=== PATIENT | male | born 1985 | race Caucasian/White ===

== ENCOUNTER 2021-06-17 17:31 | Emergency (ER) | payer BC ==
[~2021-06-17] VITALS: Ht 165.1 cm; Wt 81.6 kg
[~2021-06-17 17:31] MED LIST: ASACOL; MESA800T PO
--- NOTE | 2021-06-17 17:35 | NUR ---
Placed in room 1 . Placed on food concession manager, blood pressure machine and pulse oximeter. To gown for exam. Side rails up. Report given to LILLIANA Barba.
--- NOTE | 2021-06-17 17:40 | NUR ---
Pt brought by self, A&Ox4, pt presents to ER with L testicular pain, pt taking cipro byut symptoms not resolving , afebrile, will cont to monitor.
[2021-06-17 17:53] VITALS: BP_SYST 158
--- NOTE | 2021-06-17 18:05 | NUR ---
Dr Solomon evaluating patient at bedside
--- NOTE | 2021-06-17 18:10 | NUR ---
CALM, ALERT, RESP UNLABORED, SKIN WARM AND DRY, COMMUNICATES CLEARLY, NAD
--- NOTE | 2021-06-17 18:15 | NUR ---
Pt off the unit for US
[2021-06-17 19:04] LABS: BASOPHILS # (AUTO) 0.1 K/uL (0.0-0.2); BASOPHILS % (AUTO) 0.9 % (0.0-2.0); EOSINOPHILS # (AUTO) 0.2 K/uL (0.0-0.4); HEMATOCRIT 44.2 % (36-54); HEMOGLOBIN 14.4 g/dL (14.0-18.0); LYMPHOCYTES # (AUTO) 1.6 K/uL (1.0-5.5); LYMPHOCYTES % (AUTO) 20.6 % (20.5-51.5); MEAN CORPUSCULAR HEMOGLOBIN 24 pg (27-31); MEAN CORPUSCULAR HGB CONC 33 % (32-36); MEAN CORPUSCULAR VOLUME 75 fL (79.0-98.0); MONOCYTES # (AUTO) 0.7 K/uL (0.0-1.0); MONOCYTES % (AUTO) 9.2 % (1.7-9.3); NEUTROPHILS # (AUTO) 5.2 K/uL (1.8-7.7); NEUTROPHILS % (AUTO) 67.3 % (40.0-70.0); PLATELET COUNT (AUTO) 323 K/uL (130-430); RED BLOOD CELL COUNT(AUTO) 5.93 MIL/uL (4.2-6.2); RED CELL DISTRIBUTION WIDTH 15.7 % (9.0-15.0); WHITE BLOOD COUNT (AUTO) 7.7 K/uL (4.8-10.8)
[2021-06-17 19:20] LABS: C-REACTIVE PROTEIN QUANT < 0.2 mg/dL (0-0.5)
--- NOTE | 2021-06-17 19:20 | NUR ---
REPORT RECEIVED FROM LILLIANA FLORIAN. PT RESTING CALMLY. AWAITING FOR DISPOSITION.
[2021-06-17 19:25] LABS: ALANINE AMINOTRANSFERASE 25 U/L (12-78); ALBUMIN 3.8 g/dL (3.4-4.8); ASPARTATE AMINOTRANSFERASE 10 U/L (10-37); CALCIUM 8.4 mg/dL (8.4-11.0); CHLORIDE 104 mmol/L (98-107); CREATININE 1.53 mg/dL (0.55-1.30); GLUCOSE 94 mg/dL (70-99); SODIUM SERUM 138 mmol/L (136-145); TOTAL BILIRUBIN 0.4 mg/dL (0.0-1.0); UREA NITROGEN, BLOOD 10 mg/dL (8-21)
[2021-06-17 19:36] LABS: GFR AFRICAN AMERICAN 67 mL/min (>90)
[2021-06-17 19:43] LABS: ANION GAP 4 (5-15)
[2021-06-17 19:57] VITALS: BP_SYST 147
--- NOTE | 2021-06-17 19:58 | NUR ---
Patient given written and verbal discharge instructions and verbalizes understanding. DR. LINO MAK MD discussed with patient the results and treatment provided. Patient in stable condition. ID arm band removed. Patient educated on pain management and to follow up with PMD. Pain Scale 0/10. Opportunity for questions provided and answered. Medication side effect fact sheet provided.
[2021-06-17 20:32] LABS: BILIRUBIN,URINE NEGATIVE (NEGATIVE); BLOOD, URINE NEGATIVE (NEGATIVE); CLARITY/URINE CLEAR (CLEAR); COLOR,URINE YELLOW (YELLOW); GLUCOSE,URINE NEGATIVE (NEGATIVE); KETONES,URINE NEGATIVE (NEGATIVE); LEUKOCYTE ESTERASE ,URINE NEGATIVE (NEGATIVE); NITRITE, URINE NEGATIVE (NEGATIVE); PROTEIN URINE NEGATIVE (NEGATIVE); UROBILINOGEN,URINE 0.2 (0.2-1.0)
== END 2021-06-17 19:58 | disposition home or self-care (01) ==
LOC: SED 17:31
DX: N45.1 Epididymitis (principal); Z79.899 Other long term (current) drug therapy
CPT/HCPCS: 36415; 76870-TC; 80053; 81003; 85025; 86140; 99284